=== PATIENT | male | born 1985 | race Caucasian/White ===

== ENCOUNTER 2017-11-19 22:43 | Emergency (ER) | payer SELFPAY ==
--- NOTE | 2017-11-19 22:45 | EDPHY ---
H & P Time Seen by Provider: 11/19/17 22:44 HPI/ROS: Chief complaint: Medical clearance for shelter History of present illness: This is a 32-year-old male brought to the emergency department by EMS, accompanied by police for medical clearance to shelter. Patient was apparently tackled while being arrested. There is concern for skin wounds, there was a report of a history of MRSA On my evaluation patient states "I am fine." He will not further communicate with me. Review of systems: Unable to obtain as patient will not talk to me (Milad Friedman) - Physical Exam Exam: General Appearance: Alert, restrained to the ambulance pram, extremely combative , constantly swearing, will not talk to me. Eyes: Pupils equal and round no injection. Respiratory: Chest is non tender, lungs are clear to auscultation. Cardiac: regular rate and rhythm Gastrointestinal: Abdomen is soft and non tender, no masses, bowel sounds normal. Musculoskeletal: Neck is supple and non tender. Extremities have full range of motion and are non tender. Skin: Abrasions to the lower extremities bilaterally. No repairable lesions. No evidence of infection. (Milad Friedman) Constitutional: Initial Vital Signs Temperature (C) 36.6 C 11/19/17 22:42 Heart Rate 74 11/19/17 22:42 Respiratory Rate 16 11/19/17 22:42 Blood Pressure 113/74 11/19/17 22:42 O2 Sat (%) 95 11/19/17 22:42 O2 Delivery Mode Room Air Medical Decision Making ED Course/Re-evaluation: Patient seen under the supervision of my secondary supervising physician Dr. Dulce Cooper. Patient presents to the emergency department with EMS and police for medical clearance. Apparently he was tackled during arrest. There is some vague report of a history of a MRSA infection. On my evaluation he will not speak to me. He has only told me "I am fine." He is constantly swearing at staff. He does appear to be fully alert, however, as he is arguing with staff, EMS and the police. I do not appreciate evidence of illness or injury. He is medically cleared for shelter and discharged with EMS and the police. (Milad Friedman) PHYSICIAN DOCUMENTATION: The patient was evaluated and managed by the Physician Catalogue Librarian. My co- signature indicates that I have reviewed this chart and I agree with the findings and plan of care as documented. I am the secondary supervising physician. (Dulce Cooper) Departure - Departure Disposition: Law Enforcement/Court/Residential Clinical Impression: Medical clearance for incarceration, Wounds, multiple Condition: Good Instructions: Acute Wounds (ED) Additional Instructions: Follow-up with a primary care doctor for recheck If symptoms worsen or new symptoms develop return to the emergency room for recheck Medically cleared to go to shelter Referrals: Patient,NotPresent [Primary Care Provider] - As per Instructions
[2017-11-19 22:48] VITALS: BP 113/74
== END 2017-11-19 22:53 ==
DX: S80.811A Abrasion, right lower leg, initial encounter (principal); S80.812A Abrasion, left lower leg, initial encounter; W04.XXXA Fall while being carried or supported by other persons, initial encounter; Y65 Other misadventures during surgical and medical care